=== PATIENT | female | born 1990 | race Caucasian/White ===

== ENCOUNTER 2017-04-23 23:20 | Emergency (ER) | payer MEDICAID ==
[~2017-04-23] VITALS: Ht 162.6 cm; Wt 76.0 kg
[~2017-04-23 23:20] MED LIST: ACET-141 PO; FAMO40TA38 PO; ONDA8TAB14 PO
[2017-04-23 23:44] VITALS: Ht 162.6 cm; Wt 76.0 kg
[2017-04-24] MEDS ORDERED: ONDANSETRON (ODT) 4 MG TAB ODT STA (01:14)
--- NOTE | 2017-04-24 01:45 | ERD ---
ER Documentation Chief Complaint Chief Complaint LLQ PAIN WITH RADIATING PX TO EPIGASTRIC AREA, +N/V/LEOS X 3 DAYS HPI 27-year-old female presents here to emergency department for complaints of left lower quadrant abdominal pain radiating to the epigastric area that started 3 days ago, patient describes the pain as sharp pain, 8/10 scale, accompanied with vomiting and diarrhea. Patient denies any fever or chills. Patient denies any blood in stool or black stool. Patient did not take any medications to help with symptoms. She denies any hematuria or dysuria. ROS All systems reviewed and are negative except as per history of present illness. Medications Home Meds Active Scripts Acetaminophen* (Acetaminophen*) 500 MG Extra Strength Tablet, 500 MG PO Q4H Y for PAIN AND OR ELEVATED TEMP, #16 TAB Prov:DOMO FIGUEROA MD 02/21/16 Famotidine* (Pepcid*) 40 Mg Tablet, 40 MG PO HS, #30 TAB Prov:DOMO FIGUEROA MD 02/21/16 Ondansetron (Ondansetron Odt) 8 Mg Tab.rapdis, 8 MG PO Q6H Y for NAUSEA AND/OR VOMITING, #10 TAB Prov:DOMO FIGUEROA MD 02/21/16 Allergies Allergies: Coded Allergies: No Known Allergy (Unverified , 05/30/15) PMhx/Soc Medical and Surgical Hx: pt denies Surgical Hx History of Surgery: No Anesthesia Reaction: No Hx Neurological Disorder: No Hx Respiratory Disorders: Yes (asthma) Hx Cardiac Disorders: No Hx Psychiatric Problems: No Hx Miscellaneous Medical Probl: No Hx Alcohol Use: No Hx Substance Use: No Hx Tobacco Use: No Smoking Status: Never smoker FmHx Family History: No coronary disease, No diabetes, No other Physical Exam Vitals Vital Signs Date Time Temp Pulse Resp B/P Pulse Ox O2 Delivery O2 Flow Rate FiO2 04/23/17 23:44 98.7 71 18 122/76 99 Physical Exam GENERAL: The patient is well developed and appropriate for usual state of health, in no apparent distress. CHEST: Clear to auscultation bilaterally. There are no rales, wheezes or rhonchi. HEART: Regular rate and rhythm. No murmurs, clicks, rubs or gallops. No S3 or S4. ABDOMEN: Soft, nontender and nondistended. Good bowel sounds. No rebound or guarding. No gross peritonitis. No gross organomegaly or masses. No Lopez sign or McBurney point tenderness. BACK: No midline or flank tenderness. EXTREMITIES: Equal pulses bilaterally. There is no peripheral clubbing, cyanosis or edema. No focal swelling or erythema. Full range of motion. Grossly neurovascularly intact. NEURO: Alert and oriented. Cranial nerves 2-12 intact. Motor strength in all 4 extremities with 5/5 strength. Sensation grossly intact. Normal speech and gait. SKIN: There is no apparent rash or petechia. The skin is warm and dry. HEMATOLOGIC AND LYMPHATIC: There is no evidence of excessive bruising or lymphedema. No gross cervical, axillary, or inguinal lymphadenopathy. Result Diagram: 04/24/1721804/24/17218 Results 24 hrs Laboratory Tests Test 04/24/17 02:13 04/24/17 02:19 Urine Color STRAW Urine Clarity CLEAR Urine pH 7.0 Urine Specific Canvas 1.012 Urine Ketones NEGATIVEmg/dL Urine Nitrite NEGATIVEmg/dL Urine Bilirubin NEGATIVEmg/dL Urine Urobilinogen NEGATIVEmg/dL Urine Leukocyte Esterase NEGATIVELeu/ul Urine Hemoglobin NEGATIVEmg/dL Urine Glucose NEGATIVEmg/dL Urine Total Protein NEGATIVEmg/dl White Blood Count 8.410^3/ul Red Blood Count 4.0910^6/ul Hemoglobin 12.2g/dl Hematocrit 37.3% Mean Corpuscular Volume 91.2fl Mean Corpuscular Hemoglobin 29.8pg Mean Corpuscular Hemoglobin Concent 32.7g/dl Red Cell Distribution Width 12.8% Platelet Count 13078^3/UL Mean Platelet Volume 10.0fl Neutrophils % 55.7% Lymphocytes % 33.7% Monocytes % 8.2% Eosinophils % 1.8% Basophils % 0.5% Nucleated Red Blood Cells % 0.0/100WBC Neutrophils # 4.710^3/ul Lymphocytes # 2.810^3/ul Monocytes # 0.710^3/ul Eosinophils # 0.210^3/ul Basophils # 0.010^3/ul Nucleated Red Blood Cells # 0.010^3/ul Sodium Level 145mmol/L Potassium Level 3.3mmol/L Chloride Level 106mmol/L Carbon Dioxide Level 29mmol/L Anion Gap 13 Blood Urea Nitrogen 10mg/dl Creatinine 0.65mg/dl Glucose Level 91mg/dl Calcium Level 9.4mg/dl Total Bilirubin 0.1mg/dl Direct Bilirubin 0.00mg/dl Indirect Bilirubin 0.1mg/dl Aspartate Amino Transf (AST/SGOT) 18IU/L Alanine Aminotransferase (ALT/SGPT) 31IU/L Alkaline Phosphatase 73IU/L Total Protein 8.2g/dl Albumin 4.5g/dl Globulin 3.70g/dl Albumin/Globulin Ratio 1.21 Lipase 64U/L Current Medications Medications (Trade) Dose Ordered Sig/Eulalia Route PRN Reason Start Time Stop Time Status Last Admin Dose Admin Ondansetron HCl (Zofran Odt) 4 mg ONCE STAT ODT 04/24/17 01:14 04/24/17 01:15 DC 04/24/17 02:17 Patient was given Zofran here in the emergency department. After treatment, patient was able to tolerate po fluids here in the emergency department without any vomiting. There is no signs and symptoms of dehydration. PROCEDURE: CT of the abdomen and pelvis without contrast CLINICAL INDICATION: Abdominal pain TECHNIQUE: Spiral CT images through the abdomen and pelvis without the use of contrast. The administered radiation dose is CTDI 9.8 mGy and DLP 584.41 mGy* cm. Coronal and sagittal reformatted images were submitted. One or more of the following dose reduction techniques were used: automated exposure control, adjustment of the mA and/or kV according to patient size, or use of iterative reconstruction technique. DICOM images are available. COMPARISON: None FINDINGS: Lack of oral and intravenous contrast somewhat limits evaluation. There is a 1.4 cm calcified nodule in the right lower lobe. Bibasilar compressive changes are seen. There is no pleural effusion. The liver, spleen, adrenal glands and pancreas are normal in appearance. There is no evidence of cholelithiasis or biliary ductal dilatation. The kidneys are normal in size and contour. A duplicated left renal collecting system is noted.. There is no evidence of hydronephrosis or nephrolithiasis. The aorta is normal in caliber.. There is no evidence for bowel obstruction, free air, or abscess. The appendix is normal in appearance. No adenopathy or ascites is seen. The uterus is retroverted. The bladder is decompressed. There is trace pelvic free fluid. Bilateral sacroiliac joint space narrowing and sclerosis, greater on the left. < IMPRESSION: No definite acute abnormality of the abdomen or pelvis. 1.4 cm right lower lobe calcified granuloma. RPTAT: HCNS Julien Glynn Physician Date Time Electronically viewed and signed by Julien Glynn Physician on 04/24/2017 03: 18 CS/ Procedures/MDM Medical Decision Making: Patient symptoms was likely is consistent with viral gastroenteritis. No symptoms of dehydration. There is low suspicion for abdominal emergencies at this time. Patients abdominal exam is normal at this time. Patients radiology exam does not show any abdominal emergencies at this time. There is low suspicion for appendicitis, cholecystitis, abdominal aortic aneurysms or peritonitis at this time. There is low suspicion for sepsis. Patient appears well and is hemodynamically stable. Disposition: Home. Condition: Stable Prescription Bentyl, Zofran, ibuprofen Instructions: Patient is advised to take medications as prescribed. Patient is advised to rest, increase fluid intake and do brat diet for next 1-2 days and progress as tolerated. Patient is advised that if symptoms are worse, severe abdominal pain, uncontrolled vomiting, high fever, severe flank pain, worst signs and symptoms, to return to the emergency department immediately. Otherwise, patient can follow up with primary care doctor in 5-7 days. Disclaimer: Inadvertent spelling and grammatical errors are likely due to EHR/ dictation software use and do not reflect on the overall quality of patient care. Also, please note that the electronic time recorded on this note does not necessarily reflect the actual time of the patient encounter. Departure Diagnosis: Primary Impression: Viral gastroenteritis Condition: Stable Patient Instructions: Gastroenteritis, Viral (6Y-Adult) Additional Instructions: Patient is advised to take medications as prescribed. Patient is advised to rest , increase fluid intake and do brat diet for next 1-2 days and progress as tolerated. Patient is advised that if symptoms are worse, severe abdominal pain , uncontrolled vomiting, high fever, severe flank pain, worst signs and symptoms , to return to the emergency department immediately. Otherwise, patient can follow up with primary care doctor in 5-7 days. MARY ANN CHANEL NP Apr 24, 2017 01:45
--- NOTE | 2017-04-24 03:19 | RADRPT ---
PROCEDURE: CT of the abdomen and pelvis without contrast CLINICAL INDICATION: Abdominal pain TECHNIQUE: Spiral CT images through the abdomen and pelvis without the use of contrast. The admin istered radiation dose is CTDI 9.8 mGy and DLP 584.41 mGy*cm. Coronal and sagittal reformatted imag es were submitted. One or more of the following dose reduction techniques were used: automated expo sure control, adjustment of the mA and/or kV according to patient size, or use of iterative reconstr uction technique. DICOM images are available. COMPARISON: None FINDINGS: Lack of oral and intravenous contrast somewhat limits evaluation. There is a 1.4 cm calcified nod ule in the right lower lobe. Bibasilar compressive changes are seen. There is no pleural effusion. The liver, spleen, adrenal glands and pancreas are normal in appearance. There is no evidence of cho lelithiasis or biliary ductal dilatation. The kidneys are normal in size and contour. A duplicated l eft renal collecting system is noted.. There is no evidence of hydronephrosis or nephrolithiasis. T he aorta is normal in caliber.. There is no evidence for bowel obstruction, free air, or abscess. The appendix is normal in appearance. No adenopathy or ascites is seen. The uterus is retroverted. The bladder is decompressed. There is trace pelvic free fluid. Bilateral sacroiliac joint space manuel rowing and sclerosis, greater on the left. < IMPRESSION: No definite acute abnormality of the abdomen or pelvis. 1.4 cm right lower lobe calcified granuloma. RPTAT: HCNS Physician Laisha Date Time Electronically viewed and signed by Physician Laisha on 04/24/2017 03:18 /
[2017-04-24 03:20] LABS: BASOPHILS % 0.5 % (0.0-2.0); EOSINOPHILS # 0.2 10^3/ul (0.0-0.5); EOSINOPHILS % 1.8 % (0.0-7.0); HEMATOCRIT 37.3 % (37.0-47.0); HEMOGLOBIN 12.2 g/dl (12.0-16.0); LYMPHOCYTES # 2.8 10^3/ul (0.8-2.9); LYMPHOCYTES % 33.7 % (15.0-51.0); MEAN CORPUSCULAR HEMOGLOBIN 29.8 pg (29.0-33.0); MEAN CORPUSCULAR HGB CONC 32.7 g/dl (32.0-37.0); MEAN CORPUSCULAR VOLUME 91.2 fl (82.0-101.0); MONOCYTE # 0.7 10^3/ul (0.3-0.9); MONOCYTES % 8.2 % (0.0-11.0); NEUTROPHIL # 4.7 10^3/ul (1.6-7.5); NEUTROPHILS % 55.7 % (39.0-77.0); PLATELET COUNT 318 10^3/UL (140-415); RED BLOOD COUNT 4.09 10^6/ul (4.20-5.40); RED CELL DISTRIBUTION WIDTH 12.8 % (11.5-14.5); WHITE BLOOD COUNT 8.4 10^3/ul (4.8-10.8)
[2017-04-24 03:38] LABS: ADD UMIC NO; UR ASCORBIC ACID NEGATIVE (NEGATIVE); UR BILIRUBIN (Dip) NEGATIVE (NEGATIVE); UR BLOOD (Dip) NEGATIVE (NEGATIVE); UR CLARITY CLEAR (CLEAR); UR COLOR STRAW (YELLOW); UR GLUCOSE (Dip) NEGATIVE (NEGATIVE); UR KETONES (Dip) NEGATIVE (NEGATIVE); UR LEUKOCYTE ESTERASE (Dip) NEGATIVE Leu/ul (NEGATIVE); UR NITRITE (Dip) NEGATIVE (NEGATIVE); UR SPECIFIC GRAVITY (Dip) 1.012 (1.003-1.030); UR TOTAL PROTEIN (Dip) NEGATIVE (NEGATIVE); UR UROBILINOGEN (Dip) NEGATIVE (NEGATIVE)
[2017-04-24 03:44] LABS: ALBUMIN 4.5 g/dl (3.3-4.9); ALBUMIN/GLOBULIN RATIO 1.21; BILIRUBIN,INDIRECT 0.1 mg/dl (0-1.1); BILIRUBIN,TOTAL 0.1 mg/dl (0.2-1.3); CALCIUM 9.4 mg/dl (8.4-10.2); CREATININE 0.65 mg/dl (0.44-1.00); POTASSIUM 3.3 mmol/L (3.5-5.1); TOTAL PROTEIN 8.2 g/dl (6.1-8.1)
[2017-04-24] MEDS ORDERED: ONDA4TAB14 PO (03:52)
[2017-04-24] MEDS ORDERED: DICY10CA60 PO (03:52)
[2017-04-24] MEDS ORDERED: IBUP-1542 PO (03:52)
[2017-04-24 04:07] VITALS: BP 114/78; PULSE 65; RESP 20; TEMP 97.8
== END 2017-04-24 04:02 | disposition home or self-care (01) ==
LOC: FTE 23:20
DX: A08.4 Viral intestinal infection, unspecified (principal); J45.909 Unspecified asthma, uncomplicated
CPT/HCPCS: 36415; 74176; 80053; 81003; 83690; 85025; Z7502; Z7610

== ENCOUNTER 2017-10-07 13:47 | Emergency (ER) | END 2017-10-07 15:50 | disposition left against medical advice (07) ==

== ENCOUNTER 2018-12-08 21:23 | Emergency (ER) | payer MEDICAID ==
[~2018-12-08] VITALS: Ht 165.1 cm; Wt 87.0 kg
[~2018-12-08 21:23] MED LIST changes: +ACET1TAB40 PO; +CEPH-443 PO; +CIPR500T4 PO; +DICY10CA40 PO; -FAMO40TA38 PO; +FAMO40TA66 PO; +GUAI-637 PO; +IBUP-1542 PO; +NPH10OT RIGHT EAR; +ONDA4TAB14 PO; +SODI126M NASAL
[2018-12-08 21:51] VITALS: Ht 165.1 cm; Wt 87.0 kg
[2018-12-09] MEDS ORDERED: CEPH-443 PO (00:28)
[2018-12-09] MEDS ORDERED: IBUP-1542 PO (00:28)
[2018-12-09] MEDS ORDERED: NPH10OT BOTH EARS (00:28)
[2018-12-09] MEDS ORDERED: CEPHALEXIN 500 MG CAP PO ONE (00:30)
[2018-12-09] MEDS ORDERED: IBUPROFEN 600 MG TAB PO ONE (00:30)
--- NOTE | 2018-12-09 00:30 | ERD ---
ER Documentation Chief Complaint Chief Complaint C/O MARVIN EAR PAIN X5 DAYS HPI 28-year-old female presents with pain in the bilateral ears for last 5 days. She has had a mild discharge. Denies swimming or inciting events or foreign objects. She denies any cough, congestion, fevers, additional symptoms. ROS All systems reviewed and are negative except as per history of present illness. Medications Home Meds Active Scripts Ibuprofen* (Motrin*) 600 Mg Tab, 600 MG PO Q6, #20 TAB Prov:DOMO FIGUEROA MD 12/09/18 Cephalexin* (Keflex*) 500 Mg Capsule, 500 MG PO QID for 7 Days, CAP Prov:DOMO FIGUEROA MD 12/09/18 Neomycin/Polymyxin/Hydrocort* (Cortisporin* Otic) 10 Ml Susp, 4 DROP BOTH EARS QID for 7 Days, EA Prov:DOMO FIGUEROA MD 12/09/18 Ciprofloxacin Hcl* (Ciprofloxacin Hcl*) 500 Mg Tablet, 500 MG PO BID for 10 Days, #20 TAB Prov:LETI KEITA PA-C 10/07/17 Guaifenesin* (Robitussin*) 100 Mg/5 Ml Syrup, 200 MG PO Q4H PRN for COUGH, #120 ML Prov:DEMI SAMS NP 07/24/17 Sodium Chloride (Saline Nasal Mist) 126 Ml Mist, 2 SPRAY NASAL Q2H PRN for NASAL CONGESTION, #1 BOTTLE Prov:DEMI SAMS NP 07/24/17 Ondansetron (Ondansetron Odt) 4 Mg Tab.rapdis, 4 MG PO Q6H PRN for NAUSEA AND/OR VOMITING, #10 TAB Prov:MARY ANN CHANEL NP 04/24/17 Dicyclomine HCl (Dicyclomine HCl) 10 Mg Capsule, 10 MG PO QID, #20 CAP Prov:MARY ANN CHANEL NP 04/24/17 Ibuprofen* (Motrin*) 600 Mg Tab, 600 MG PO Q6H PRN for PAIN AND OR ELEVATED TEMP, #30 TAB Prov:MARY ANN CHANEL NP 04/24/17 Acetaminophen* (Acetaminophen*) 500 MG Extra Strength Tablet, 500 MG PO Q4H PRN for PAIN AND OR ELEVATED TEMP, #16 TAB Prov:DOMO FIGUEROA MD 02/21/16 Famotidine* (Pepcid*) 40 Mg Tablet, 40 MG PO HS, #30 TAB Prov:DOMO FIGUEROA MD 02/21/16 Ondansetron (Ondansetron Odt) 8 Mg Tab.rapdis, 8 MG PO Q6H PRN for NAUSEA AND/OR VOMITING, #10 TAB Prov:DOMO FIGUEROA MD 02/21/16 Acetaminophen-Codeine* (Acetaminophen-Cod #3*) 300-30 Mg Tab, 1 TAB PO Q4H PRN for PAIN, #10 TAB Prov:DOMO FIGUEROA MD 12/19/15 Ibuprofen* (Motrin*) 600 Mg Tab, 600 MG PO Q6, #20 TAB Prov:DOMO FIGUEROA MD 12/19/15 Cephalexin* (Keflex*) 500 Mg Capsule, 500 MG PO QID for 7 Days, CAP Prov:DOMO FIGUEROA MD 12/19/15 Neomycin/Polymyxin/Hydrocort* (Cortisporin* Otic) 10 Ml Susp, 4 DROP RIGHT EAR QID for 7 Days, EA Prov:DOMO FIGUEROA MD 12/19/15 Allergies Allergies: Coded Allergies: No Known Allergy (Unverified , 05/30/15) PMhx/Soc History of Surgery: No Anesthesia Reaction: No Hx Neurological Disorder: No Hx Respiratory Disorders: Yes (asthma) Hx Cardiac Disorders: No Hx Psychiatric Problems: No Hx Miscellaneous Medical Probl: No Hx Alcohol Use: No Hx Substance Use: No Hx Tobacco Use: No Smoking Status: Never smoker FmHx Family History: No diabetes, No coronary disease, No other Physical Exam Vitals Vital Signs Date Temp Pulse Resp B/P (MAP) Pulse Ox O2 O2 Flow FiO2 Time Delivery Rate 12/08/18 99.0 84 19 136/89 99 21:51 (105) Physical Exam Const: No acute distress Head: Atraumatic Eyes: Normal Conjunctiva ENT: Normal External Ears, Nose and Mouth. Pain with bilateral external ear movement. Decreased diameter the bilateral external auditory canals. TMs grossly normal to the canals. No external erythema, warmth, induration. Neck: Full range of motion. No meningismus. Resp: Clear to auscultation bilaterally Cardio: Regular rate and rhythm, no murmurs Abd: Soft, non tender, non distended. Normal bowel sounds Skin: No petechiae or rashes Back: No midline or flank tenderness Ext: No cyanosis, or edema Neur: Awake and alert Psych: Normal Mood and Affect Results 24 hrs Current Medications Medications Dose Sig/Eulalia Start Time Status Last (Trade) Ordered Route PRN Stop Time Admin Dose Reason Admin Ibuprofen 600 mg ONCE ONCE 12/09/18 (Motrin) PO 00:30 12/09/18 00:31 Cephalexin 500 mg ONCE ONCE 12/09/18 (Keflex) PO 00:30 12/09/18 00:31 Procedures/MDM Patient has signs of bilateral otitis externa without signs to suggest malignant otitis externa, facial cellulitis, additional concerning signs or symptoms. Will treat with Keflex given the degree of closure of the external auditory canal, Cortisporin, ibuprofen, recommendations for primary care follow-up and return precautions. The patient was stable with no new complaints during the ER course. Clinically, there is no current evidence to suggest meningitis, sepsis, acute abdomen, pneumonia, stroke, acute coronary syndrome, pulmonary embolism, aortic dissection or any other emergent condition appearing to require further evaluation or hospitalization. Patient counseled regarding my diagnostic impression and care plan. Prior to discharge all questions answered. Pt agrees with treatment plan and understands strict return precautions. Pt is instructed to follow up with primary care provider within 24-48 hours. Precautionary instructions provided including instructions to return to the ER if not improving or for any worsening or changing symptoms or concerns. Disclaimer: Inadvertent spelling and grammatical errors are likely due to EHR/dictation software use and do not reflect on the overall quality of patient care. Also, please note that the electronic time recorded on this note does not necessarily reflect the actual time of the patient encounter. Departure Diagnosis: Primary Impression: Otitis externa Otitis externa type: unspecified type Chronicity: unspecified Laterality: bilateral Qualified Codes: H60.93 - Unspecified otitis externa, bilateral Condition: Stable Patient Instructions: External Ear Infection (Adult) Additional Instructions: Cheque otro vez con mcknight doctor primario en el proximo jones or regresa para mas o nueva simptomas. DOMO FIGUEROA MD Dec 09, 2018 00:30
[2018-12-09 01:13] VITALS: BP 127/74; PULSE 89; RESP 18
== END 2018-12-09 01:14 | disposition home or self-care (01) ==
LOC: FTE 21:23
DX: H60.93 Unspecified otitis externa, bilateral (principal); J45.909 Unspecified asthma, uncomplicated
CPT/HCPCS: Z7502; Z7610; 99283